=== PATIENT | female | born 1975 | race Caucasian/White ===

== ENCOUNTER 2017-06-23 19:37 | Observation (INO) ==
[2017-06-23 20:04] LABS: Bilirubin,Urine Negative (Negative); Blood,Urine Moderate (Negative); Clarity,Urine Cloudy (Clear); Color,Urine Yellow (Yellow); Glucose,Urine (UA) Normal (Normal); Ketones,Urine 15 mg/dL (Negative); Leukocyte Esterase,Urine Moderate (Negative); Nitrite,Urine Positive (Negative); PH,Urine 5.5 pH Units (5.0-8.0); Protein,Urine 30 mg/dL (Neg-Trace); Urobilinogen,Urine Normal (Normal)
--- NOTE | 2017-06-23 20:08 | Emergency Department Note ---
Disposition Clinical Impression: Abdominal pain, UTI (urinary tract infection) Disposition: Admitted As Inpatient Condition: Fair Abdominal Pain HPI - General Chief Complaint: ED Abdominal Pain Stated Complaint: ABD/LOW BACK PAIN Time Seen by Provider: 06/23/17 19:45 Source: patient Mode of arrival: ambulatory Limitations: no limitations Nursing Notes Reviewed: Yes Vital Signs Reviewed: Yes - History of Present Illness HPI Narrative: History of having severe abdominal pain lower pelvic region she has had some flank pain she has had fever chills aches all over does not feel very well she states she is nauseated but no vomiting she denies diarrhea melena hematochezia or hematemesis she states that she is having urgency frequency but denies vaginal discharge Pt Subjective Complaint: abdominal pain Onset (ago): day(s) Consistency: constant, Worsening Location: diffuse Pain Severity: severe Pain Scale: 9 Quality: cramping Radiation: none Migration to: no migration Improves with: nothing Worsens with: nothing Associated symptoms: Reports: nausea, dysuria, anorexia. Denies: vomiting, diarrhea, fever, chills, constipation, hematemesis, hematochezia, melena, hematuria, syncope Treatments prior to arrival: none - Related Data Home Medications Medication Instructions Recorded Confirmed No Known Home Drugs 06/23/17 06/23/17 Allergies Allergy/AdvReac Type Severity Reaction Status Date / Time No Known Allergies Allergy Verified 06/23/17 19:39 All systems ED: reviewed and negative except as stated. Review of Systems: As Per HPI Constitutional: Reports: fever, weakness. Denies: chills Eyes: Denies: eye pain ENT ED: Denies: ear pain Cardiovascular: Denies: chest pain, palpitations Respiratory: Denies: wheezes Gastrointestinal: Reports: abdominal pain, nausea, vomiting. Denies: constipation, hematemesis Genitourinary: Reports: urgency, dysuria, frequency Musculoskeletal: Reports: back pain. Denies: neck pain Integumentary: Denies: rash, abrasion Neurological: Denies: headache Psychiatric: Denies: anxiety Endocrine: Reports: fatigue Hematological/Lymphatic: Denies: easy bleeding Allergic/Immunologic: Denies: facial swelling Abdominal Pain PMH - Past Medical History Medical history: Reports: no medical history Female Surgical History: Reports: Psychiatric history: Reports: no psych history - Social History Smoking status: Current every day smoker Alcohol use: Reports: none Drug use: Reports: none Physical Exam - General Limitations: no limitations General appearance: alert, in no apparent distress, anxious - Head Head exam: atraumatic, normocephalic, normal inspection - Eye Eye exam: Present: normal appearance, PERRL, EOMI - ENT ENT exam: normal exam, normal oropharynx, mucous membranes moist, normal external ear exam - Neck Neck exam: Present: normal inspection, full ROM, trachea midline - Chest Chest inspection: Present: normal inspection, symmetric chest wall rise - Respiratory Respiratory exam: Present: normal lung sounds bilaterally - Cardiovascular Cardiovascular exam: Present: regular rate, normal rhythm, normal heart sounds - Abdominal Exam Abdominal exam: Present: soft, Non-Tender, normal bowel sounds. Absent: mass, pulsatile mass - Extremities Exam Extremities exam: Present: normal inspection, full ROM, normal capillary refill. Absent: tenderness, pedal edema, joint swelling, calf tenderness - Expanded Lower Extremity Exam Neurovascular/Tendon exam: Present: normal capillary refill, normal fine/light touch Gait: observed and normal - Back Exam Back exam: Present: normal inspection, full ROM, CVA tenderness (R), CVA tenderness (L). Absent: muscle spasm - Neurological Exam Neurological exam: Present: alert, oriented X3, CN II-XII intact, normal gait - Psychiatric Psychiatric exam: Present: normal affect, normal mood - Skin Skin exam: Present: warm, intact, normal color, other (Moist) Course Course Narrative: Patient seen and examined CT scan laboratory data evidences pyelonephritis we will start her on antibiotics IV with the elevated white count we will admit for observation hydrate Dr. Zurita agrees Vital Signs Temperature 100.0 F H 06/23/17 19:39 Pulse Rate 112 06/23/17 19:39 Respiratory Rate 20 06/23/17 19:39 Blood Pressure 111/75 06/23/17 19:39 O2 Sat by Pulse Oximetry 98 06/23/17 19:39 Temperature 99.0 F 06/24/17 03:37 Pulse Rate 80 06/24/17 03:37 Respiratory Rate 18 06/24/17 03:37 Blood Pressure 100/62 06/24/17 03:37 O2 Sat by Pulse Oximetry 98 06/24/17 03:37 Oxygen Delivery Oxygen Delivery Room Air Abdominal Pain - Differential Diagnosis Differential Diagnosis: Likely: abdominal pain non-specific, other (UTI pyelonephritis urinary tract infection and vaginitis inflammatory disease) - Medical Records Medical records reviewed: Yes I reviewed the patient's medical records. - Lab Data Lab results reviewed: Yes I reviewed the patient's lab results. Result diagrams: 06/23/17 20:21 06/23/17 20:21 Lab Results 06/23/17 06/23/17 06/23/17 Range/Units 19:58 19:58 20:21 WBC 21.5 H (4.3-11.1) K/mcL RBC 4.48 (3.82-4.97) M/mcL Hgb 12.2 (11.5-15.4) g/dL Hct 36.3 (35.3-44.9) % MCV 81.0 L (83.0-100.0) fL MCH 27.2 L (28.0-33.3) pg MCHC 33.6 (31.6-35.5) g/dL RDW 15.6 H (11.5-14.5) % Plt Count 302 (140-400) K/mcL MPV 8.9 L (9.4-12.4) fL Immature Gran % 0.8 (0-4) % Seg Neutrophils % 87.3 % Lymphocytes % 4.4 % Monocytes % 7.2 % Eosinophils % 0.0 % Basophils % 0.3 % Neutrophils # 18.8 H (1.6-8.9) K/mcL Lymphocytes # 1.0 (0.6-4.6) K/mcL Monocytes # 1.6 H (0.0-1.3) K/mcL Eosinophils # 0.0 (0.0-0.6) K/mcL Basophils # 0.1 (0.0-0.2) K/mcL PT (9.4-12.1) Seconds INR APTT (26.0-36.0) Seconds VBG Lactic Acid (0.5-2.2) mmol/L Sodium (136-145) mEq/L Potassium (3.5-4.5) mEq/L Chloride (98-109) mEq/L Carbon Dioxide (19-29) mEq/L BUN (7-20) mg/dL Creatinine (0.57-1.11) mg/dL Est GFR ( Amer) (> 60) Est GFR (Non-Af Amer) (> 60) BUN/Creatinine Ratio (6-26) Glucose (70-99) mg/dL Calculated Osmolality (280-300) Calcium (8.6-10.8) mg/dL Total Bilirubin (0.2-1.2) mg/dL AST (5-34) Units/L ALT (0-55) Units/L Alkaline Phosphatase (38-126) Units/L Serum Total Protein (6.0-8.3) g/dL Albumin (3.5-5.0) g/dL Globulin (2.4-3.5) g/dL Albumin/Globulin Ratio (1.1-2.2) Lipase (8-78) Units/L Urine Color Yellow (Yellow) Urine Clarity Cloudy A (Clear) Urine pH 5.5 (5.0-8.0) pH Units Ur Specific [place] 1.010 (1.010-1.025) Urine Protein 30 H (Neg-Trace) mg/dL Urine Glucose (UA) Normal (Normal) mg/dL Urine Ketones 15 H (Negative) mg/dL Urine Blood Moderate H (Negative) Urine Nitrite Positive A (Negative) Urine Bilirubin Negative (Negative) Urine Urobilinogen Normal (Normal) mg/dL Ur Leukocyte Esterase Moderate H (Negative) Urine Microscopic RBC 3-5 H (0-3) per hpf Urine Microscopic WBC TNTC H (0-3) per hpf Ur Squamous Epith Cells Few (None-Few) per lpf Urine Bacteria Many H (None-Few) per hpf Urine Mucus Many H (Few) Urine Test Negative (Negative) 06/23/17 06/23/17 06/23/17 Range/Units 20:21 20:21 20:21 WBC (4.3-11.1) K/mcL RBC (3.82-4.97) M/mcL Hgb (11.5-15.4) g/dL Hct (35.3-44.9) % MCV (83.0-100.0) fL MCH (28.0-33.3) pg MCHC (31.6-35.5) g/dL RDW (11.5-14.5) % Plt Count (140-400) K/mcL MPV (9.4-12.4) fL Immature Gran % (0-4) % Seg Neutrophils % % Lymphocytes % % Monocytes % % Eosinophils % % Basophils % % Neutrophils # (1.6-8.9) K/mcL Lymphocytes # (0.6-4.6) K/mcL Monocytes # (0.0-1.3) K/mcL Eosinophils # (0.0-0.6) K/mcL Basophils # (0.0-0.2) K/mcL PT 14.6 H (9.4-12.1) Seconds INR 1.3 APTT 32.9 (26.0-36.0) Seconds VBG Lactic Acid (0.5-2.2) mmol/L Sodium 136 (136-145) mEq/L Potassium 3.6 (3.5-4.5) mEq/L Chloride 102 (98-109) mEq/L Carbon Dioxide 19 (19-29) mEq/L BUN 8 (7-20) mg/dL Creatinine 0.84 (0.57-1.11) mg/dL Est GFR ( Amer) > 60 (> 60) Est GFR (Non-Af Amer) > 60 (> 60) BUN/Creatinine Ratio 10 (6-26) Glucose 103 H (70-99) mg/dL Calculated Osmolality 281 (280-300) Calcium 9.0 (8.6-10.8) mg/dL Total Bilirubin 0.3 (0.2-1.2) mg/dL AST 12 (5-34) Units/L ALT 9 (0-55) Units/L Alkaline Phosphatase 80 (38-126) Units/L Serum Total Protein 6.8 (6.0-8.3) g/dL Albumin 3.1 L (3.5-5.0) g/dL Globulin 3.7 H (2.4-3.5) g/dL Albumin/Globulin Ratio 0.8 L (1.1-2.2) Lipase 5 L (8-78) Units/L Urine Color (Yellow) Urine Clarity (Clear) Urine pH (5.0-8.0) pH Units Ur Specific [place] (1.010-1.025) Urine Protein (Neg-Trace) mg/dL Urine Glucose (UA) (Normal) mg/dL Urine Ketones (Negative) mg/dL Urine Blood (Negative) Urine Nitrite (Negative) Urine Bilirubin (Negative) Urine Urobilinogen (Normal) mg/dL Ur Leukocyte Esterase (Negative) Urine Microscopic RBC (0-3) per hpf Urine Microscopic WBC (0-3) per hpf Ur Squamous Epith Cells (None-Few) per lpf Urine Bacteria (None-Few) per hpf Urine Mucus (Few) Urine Test (Negative) 06/23/17 Range/Units 21:02 WBC (4.3-11.1) K/mcL RBC (3.82-4.97) M/mcL Hgb (11.5-15.4) g/dL Hct (35.3-44.9) % MCV (83.0-100.0) fL MCH (28.0-33.3) pg MCHC (31.6-35.5) g/dL RDW (11.5-14.5) % Plt Count (140-400) K/mcL MPV (9.4-12.4) fL Immature Gran % (0-4) % Seg Neutrophils % % Lymphocytes % % Monocytes % % Eosinophils % % Basophils % % Neutrophils # (1.6-8.9) K/mcL Lymphocytes # (0.6-4.6) K/mcL Monocytes # (0.0-1.3) K/mcL Eosinophils # (0.0-0.6) K/mcL Basophils # (0.0-0.2) K/mcL PT (9.4-12.1) Seconds INR APTT (26.0-36.0) Seconds VBG Lactic Acid 1.2 (0.5-2.2) mmol/L Sodium (136-145) mEq/L Potassium (3.5-4.5) mEq/L Chloride (98-109) mEq/L Carbon Dioxide (19-29) mEq/L BUN (7-20) mg/dL Creatinine (0.57-1.11) mg/dL Est GFR ( Amer) (> 60) Est GFR (Non-Af Amer) (> 60) BUN/Creatinine Ratio (6-26) Glucose (70-99) mg/dL Calculated Osmolality (280-300) Calcium (8.6-10.8) mg/dL Total Bilirubin (0.2-1.2) mg/dL AST (5-34) Units/L ALT (0-55) Units/L Alkaline Phosphatase (38-126) Units/L Serum Total Protein (6.0-8.3) g/dL Albumin (3.5-5.0) g/dL Globulin (2.4-3.5) g/dL Albumin/Globulin Ratio (1.1-2.2) Lipase (8-78) Units/L Urine Color (Yellow) Urine Clarity (Clear) Urine pH (5.0-8.0) pH Units Ur Specific [place] (1.010-1.025) Urine Protein (Neg-Trace) mg/dL Urine Glucose (UA) (Normal) mg/dL Urine Ketones (Negative) mg/dL Urine Blood (Negative) Urine Nitrite (Negative) Urine Bilirubin (Negative) Urine Urobilinogen (Normal) mg/dL Ur Leukocyte Esterase (Negative) Urine Microscopic RBC (0-3) per hpf Urine Microscopic WBC (0-3) per hpf Ur Squamous Epith Cells (None-Few) per lpf Urine Bacteria (None-Few) per hpf Urine Mucus (Few) Urine Test (Negative) - Radiology Data Radiology results reviewed: Yes I reviewed the patient's radiology results. Critical Care Time Critical Care Time: No
[2017-06-23 20:32] LABS: Basophils # 0.1 K/mcL (0.0-0.2); Basophils % 0.3 %; Hematocrit 36.3 % (35.3-44.9); Hemoglobin 12.2 g/dL (11.5-15.4); Immature Granulocytes % 0.8 % (0-4); Lymphocytes % 4.4 %; Mean Corpuscular HGB Conc 33.6 g/dL (31.6-35.5); Mean Corpuscular Hemoglobin 27.2 pg (28.0-33.3); Mean Platelet Volume 8.9 fL (9.4-12.4); Monocytes # 1.6 K/mcL (0.0-1.3); Monocytes % 7.2 %; Neutrophils # 18.8 K/mcL (1.6-8.9); Platelet Count 302 K/mcL (140-400); Red Blood Count 4.48 M/mcL (3.82-4.97); Red Cell Distribution Width 15.6 % (11.5-14.5); Segmented Neutrophils % 87.3 %
[2017-06-23 20:38] LABS: Squamous Epithelial Cell,Urine Few per lpf (None-Few); WBC,Urine TNTC per hpf (0-3)
[2017-06-23 20:39] LABS: Bacteria,Urine Many per hpf (None-Few); Mucus,Urine Many (Few)
[2017-06-23 20:52] LABS: INR 1.3; Prothrombin Time 14.6 Seconds (9.4-12.1)
[2017-06-23 20:55] LABS: Activated Partial Thrombo Time 32.9 Seconds (26.0-36.0)
[2017-06-23] MEDS ORDERED: 0.9 % Sodium Chloride 1,000 ML IVC ONE (20:55)
[2017-06-23] MEDS ORDERED: Ketorolac 30 MG/ML VIAL IVP ONE (20:58)
[2017-06-23] MEDS ORDERED: Ondansetron 4 MG/2 ML VIAL IVP ONE (20:58)
[2017-06-23 21:05] LABS: Alanine Aminotransferase 9 Units/L (0-55); Albumin 3.1 g/dL (3.5-5.0); Albumin/Globulin Ratio 0.8 (1.1-2.2); Alkaline Phosphatase 80 Units/L (38-126); Aspartate Amino Transferase 12 Units/L (5-34); BUN/Creatinine Ratio 10 (6-26); Bilirubin,Total 0.3 mg/dL (0.2-1.2); Blood Urea Nitrogen 8 mg/dL (7-20); Carbon Dioxide 19 mEq/L (19-29); Chloride 102 mEq/L (98-109); Globulin 3.7 g/dL (2.4-3.5); Glucose 103 mg/dL (70-99); Osmolality,Calculated 281 (280-300); Potassium 3.6 mEq/L (3.5-4.5); Sodium 136 mEq/L (136-145); Total Protein 6.8 g/dL (6.0-8.3); eGFR For African Americans > 60 (> 60); eGFR For Non-African Americans > 60 (> 60)
[2017-06-23] MEDS ORDERED: Naloxone 0.4 MG/ML INJ IVP PRN (23:32)
[2017-06-23] MEDS ORDERED: Ondansetron 4 MG/2 ML VIAL IVP PRN (23:32)
[2017-06-24] MEDS: 0.9 % Sodium Chloride 1,000 ML IVC SCH ×2 (00:09→08:05)
[2017-06-24] MEDS: *HR* HYDROcodone/Acet 5/325 mg TABLET PO PRN ×5 (00:19→21:21)
[2017-06-24 05:20] LABS: Basophils # 0.1 K/mcL (0.0-0.2); Basophils % 0.4 %; Eosinophils # 0.1 K/mcL (0.0-0.6); Eosinophils % 0.6 %; Hematocrit 32.7 % (35.3-44.9); Hemoglobin 10.7 g/dL (11.5-15.4); Immature Granulocytes % 0.9 % (0-4); Lymphocytes # 0.9 K/mcL (0.6-4.6); Lymphocytes % 6.6 %; Mean Corpuscular HGB Conc 32.7 g/dL (31.6-35.5); Mean Corpuscular Hemoglobin 27.2 pg (28.0-33.3); Mean Platelet Volume 8.9 fL (9.4-12.4); Monocytes # 0.6 K/mcL (0.0-1.3); Monocytes % 4.2 %; Neutrophils # 12.1 K/mcL (1.6-8.9); Platelet Count 252 K/mcL (140-400); Red Blood Count 3.94 M/mcL (3.82-4.97); Red Cell Distribution Width 15.5 % (11.5-14.5); Segmented Neutrophils % 87.3 %
[2017-06-24 05:35] LABS: BUN/Creatinine Ratio 12 (6-26); Blood Urea Nitrogen 10 mg/dL (7-20); Calcium 8.1 mg/dL (8.6-10.8); Carbon Dioxide 21 mEq/L (19-29); Chloride 108 mEq/L (98-109); Glucose 113 mg/dL (70-99); Osmolality,Calculated 290 (280-300); Potassium 3.4 mEq/L (3.5-4.5); Sodium 140 mEq/L (136-145); eGFR For African Americans > 60 (> 60); eGFR For Non-African Americans > 60 (> 60)
[2017-06-24] MEDS: Ketorolac 30 MG/ML VIAL IVP PRN ×3 (08:11→21:22)
[2017-06-24] MEDS: Acetaminophen 325 MG TABLET PO PRN (13:21)
--- NOTE | 2017-06-24 15:03 | Internal Med History&Physical ---
Date of Encounter: 06/24/17 Time of Encounter: 14:30 Assessment and Plan (1) UTI (urinary tract infection) Current visit: Yes Status: Acute She was given Rocephin in emergency room. Will continue this and add lactobacillus. Recheck labs in a.m. Qualifiers: Urinary tract infection type: site unspecified Hematuria presence: without hematuria Qualified Code(s): N39.0 - Urinary tract infection, site not specified (2) Anemia Current visit: Yes Status: Acute Hemoglobin rechecked today had decreased to 10.7. Will order anemia testing in a.m. Qualifiers: Anemia type: unspecified type Qualified Code(s): D64.9 - Anemia, unspecified (3) Hypokalemia Current visit: Yes Status: Acute We will give supplemental potassium and recheck labs in a.m. Internal Medicine - H&P: HPI Chief complaint: Abdominal and back pain Admitted From: Home Plans for Post Hospital Care: Home History of present illness: Ms. Vera is a 42 year old female who came to emergency room stating she developed onset of discomfort in her lower abdominal area on June 20. It had been constant in duration and worsening in intensity since onset. Seem to radiate gradually toward her back. She had no nausea vomiting diarrhea constipation or blood in her stools. She came to emergency room and was evaluated. She was found to have evidence of UTI and leukocytosis with left shift. She was admitted to [facility] floor for ongoing care needs. She states she had a similar previous episode of pain associated with admission to [facility] July 2016 for pyelonephritis. She denies other recent UTIs. She denies other kidney or bladder disorders. Past Med Surg Social Fam HX - Past Medical History Medical history: no medical history Psychiatric history: no psych history - Past Surgical History Surgical History: - Social History Smoking Status: Current every day smoker Smokeless Tobacco Status: No Alcohol use: none Drug use: none - Family History Mother Hx Family Cancer: Yes (Lung cancer) Internal Medicine - H&P: Meds No Known Home Drugs 06/23/17 [History] 3 Allergy/AdvReac Type Severity Reaction Status Date / Time No Known Allergies Allergy Verified 06/23/17 19:39 All Systems PM: A 10-system review of systems was performed and is negative for pertinent findings except as documented above in the HPI. Review of systems: Gen.: She states her weight has been stable the past few months Cardiovascular: She denies [place] hypertension heart failure angina DVT or pulmonary embolus Respiratory: She smokes since age 12 up to 1-1/2 packs per day. She denies chronic lung disease. GI: She denies disorders of her liver gallbladder or exocrine pancreas : She denies hematuria dysuria or kidney stones Neurologic: She has a history of migraine headaches but reports she has had none for approximately 6 months. She denies large distribution strokes or seizures Endocrine: She denies diabetes thyroid disease or hyperlipidemia Hematology/oncology: She denies blood disorders cancers or anemia Psychiatric: She denies anxiety depression or other mental health issues Musk skeletal: She denies arthritis gout or other bone joint or muscle disorders. - Constitutional Vitals: Temp Pulse Resp BP Pulse Ox 98.6 F 74 17 105/67 97 06/24/17 10:35 06/24/17 10:35 06/24/17 10:35 06/24/17 10:35 06/24/17 10:35 Exam: Gen.: She is a well-developed well-nourished female who appears in mild discomfort at present time HEENT: Head is atraumatic and normocephalic. Eyes: EOMI. There is no scleral icterus. Mouth: Mucosa is moist. Neck: Supple and nontender. There is no thyromegaly or adenopathy noted. Heart: Regular without murmurs gallops or ectopics Lungs: No wheezes or crackles are heard. Abdomen: Soft and nontender. No masses or guarding noted. Back: She has mild tenderness on percussing over her left flank area. There is no tenderness on percussing the right flank. Extremities: There is no cyanosis edema or clubbing noted. Dorsalis pedis and posterior tibial pulses are trace palpable bilaterally. Neurologic: Mental status: She is talkative and a good historian. Cranial nerves: Smile is symmetric. Forehead wrinkles bilaterally. Tongue protrudes midline. EOMI. Motor: There is no pronator drift. Cerebellar: Finger to nose is intact bilaterally. Skin: Warm and dry Internal Med - H&P Results - Labs CBC & Chem 7: 06/24/17 05:03 06/24/17 05:03 Labs: Short CBC 06/24/17 Range/Units 05:03 WBC 13.9 H (4.3-11.1) K/mcL Hgb 10.7 L D (11.5-15.4) g/dL Hct 32.7 L (35.3-44.9) % Plt Count 252 (140-400) K/mcL Neutrophils # 12.1 H (1.6-8.9) K/mcL BMP 06/24/17 05:03 Sodium 140 Potassium 3.4 L Chloride 108 Carbon Dioxide 21 BUN 10 Creatinine 0.82 Glucose 113 H Calcium 8.1 L
[2017-06-24] MEDS ORDERED: Ondansetron 4 MG/2 ML VIAL IVP PRN (15:19)
[2017-06-24] MEDS: 0.45 % Sodium Chloride w/KCl 20 MEQ/1,000 ML MLS IVC SCH (16:12)
[2017-06-24] MEDS: Nicotine 21 MG PATCH.TD24 TD SCH (16:45)
[2017-06-24 19:29] LABS: Acinetobacter baumannii by PCR Not Detected (Not Detect); Candida albicans by PCR Not Detected (Not Detect); Candida glabrata by PCR Not Detected (Not Detect); Candida krusei by PCR Not Detected (Not Detect); Candida parapsilosis by PCR Not Detected (Not Detect); Candida tropicalis by PCR Not Detected (Not Detect); Escherichia coli by PCR ***DETECTED*** (Not Detect); Klebsiella oxytoca by PCR Not Detected (Not Detect); Klebsiella pneumoniae by PCR Not Detected (Not Detect); Pseudomonas aeruginosa by PCR Not Detected (Not Detect); Serratia marcescens by PCR Not Detected (Not Detect); Streptococcus pneumoniae PCR Not Detected (Not Detect); Streptococcus pyogenes (A) PCR Not Detected (Not Detect); blaKPC Carbapenem-Resist Gene Not Detected (Not Detect)
[2017-06-24 19:30] LABS: Enterococcus by PCR Not Detected (Not Detect); Staphylococcus aureus by PCR Not Detected (Not Detect); Streptococcus agalactiae(B)PCR Not Detected (Not Detect); Streptococcus by PCR Not Detected (Not Detect)
[2017-06-24] MEDS: Lactobacillus 1 EACH CAP.SPRINK PO SCH (21:21)
[2017-06-25] MEDS: *HR* HYDROcodone/Acet 5/325 mg TABLET PO PRN ×4 (01:45→18:56)
[2017-06-25] MEDS: Ketorolac 30 MG/ML VIAL IVP PRN ×3 (04:59→18:54)
[2017-06-25] MEDS: 0.45 % Sodium Chloride w/KCl 20 MEQ/1,000 ML MLS IVC SCH (05:00)
[2017-06-25 06:39] LABS: Eosinophils # 0.2 K/mcL (0.0-0.6); Hematocrit 29.8 % (35.3-44.9); Hemoglobin 9.8 g/dL (11.5-15.4); Mean Corpuscular HGB Conc 32.9 g/dL (31.6-35.5); Mean Corpuscular Volume 82.1 fL (83.0-100.0); Mean Platelet Volume 9.3 fL (9.4-12.4); Platelet Count 185 K/mcL (140-400); Red Blood Count 3.63 M/mcL (3.82-4.97); Red Cell Distribution Width 15.7 % (11.5-14.5)
[2017-06-25 07:10] LABS: BUN/Creatinine Ratio 11 (6-26); Blood Urea Nitrogen 7 mg/dL (7-20); Carbon Dioxide 17 mEq/L (19-29); Chloride 112 mEq/L (98-109); Glucose 85 mg/dL (70-99); Magnesium 1.6 mg/dL (1.6-2.6); Osmolality,Calculated 283 (280-300); Potassium 3.5 mEq/L (3.5-4.5); Sodium 138 mEq/L (136-145); eGFR For African Americans > 60 (> 60); eGFR For Non-African Americans > 60 (> 60)
[2017-06-25 08:55] LABS: Lymphocytes # 2.7 K/mcL (0.6-4.6); Monocytes # 0.8 K/mcL (0.0-1.3); Neutrophils # 6.7 K/mcL (1.6-8.9)
[2017-06-25 08:56] LABS: Dohle Bodies Present (Not Present); Toxic Granulation Present (Not Present)
[2017-06-25 08:57] LABS: Platelet Estimate Normal (Normal)
[2017-06-25] MEDS: Lactobacillus 1 EACH CAP.SPRINK PO SCH ×2 (09:35→21:17)
[2017-06-25] MEDS: Nicotine 21 MG PATCH.TD24 TD SCH (09:35)
--- NOTE | 2017-06-25 09:44 | Internal Med Progress Note ---
Date of Encounter: 06/25/17 Time of Encounter: 09:35 - Assessment and plan (1) UTI (urinary tract infection) Current Visit: Yes Status: Acute Assessment and plan: June 25. Both blood cultures returned positive for Escherichia coli. Sensitivity is pending. Continue lactobacillus with Rocephin. Qualifiers: Urinary tract infection type: site unspecified Hematuria presence: without hematuria Qualified Code(s): N39.0 - Urinary tract infection, site not specified (2) Anemia Current Visit: Yes Status: Acute Assessment and plan: June 25. Anemia testing is pending her hemoglobin has decreased to 9.8. We will decrease IV fluids. Qualifiers: Anemia type: unspecified type Qualified Code(s): D64.9 - Anemia, unspecified (3) Hypokalemia Current Visit: Yes Status: Acute Assessment and plan: June 25. Resolved. Continue IV and oral potassium supplements. - Subjective Interval history: June 25. She has no new complaints and feels better. She has less lower abdominal pain. - Constitutional Vitals: Temp Pulse Resp BP Pulse Ox 98.4 F 73 16 122/77 97 06/25/17 06:29 06/25/17 06:29 06/25/17 06:29 06/25/17 06:29 06/25/17 06:29 Exam: She is resting comfortably in bed and appears in no acute distress. Her affect is bright and cheerful. I reviewed her medications and lab results. Internal Medicine: Result - Labs CBC & Chem 7: 06/25/17 06:05 06/25/17 06:05 Labs: Short CBC 06/25/17 Range/Units 06:05 WBC 10.5 (4.3-11.1) K/mcL Hgb 9.8 L (11.5-15.4) g/dL Hct 29.8 L (35.3-44.9) % Plt Count 185 (140-400) K/mcL Neutrophils # 6.7 (1.6-8.9) K/mcL BMP 06/25/17 06:05 Sodium 138 Potassium 3.5 Chloride 112 H Carbon Dioxide 17 L BUN 7 Creatinine 0.66 Glucose 85 Calcium 8.0 L - ABG Interpretation ABG results: PT/INR, D-dimer PT 14.6 Seconds (9.4-12.1) H 09/22/17 20:21 Consult Discharge Plan - Plan Referrals: NONE,PCP [Primary Care Provider] - 1 week
[2017-06-25] MEDS: Acetaminophen 325 MG TABLET PO PRN (12:27)
[2017-06-25 17:15] LABS: % Iron Saturation 3 % (15-50); Iron 8 mcg/dL (50-170); Transferrin 183 mg/dL (180-382)
[2017-06-25 17:35] LABS: Ferritin 114 ng/ml (5-204)
[2017-06-25 17:49] LABS: Folate 4.3 ng/mL (7.0-31.4)
[2017-06-26] MEDS: *HR* HYDROcodone/Acet 5/325 mg TABLET PO PRN ×2 (00:24→10:39)
[2017-06-26] MEDS: Ketorolac 30 MG/ML VIAL IVP PRN (05:05)
[2017-06-26 06:50] LABS: Hemoglobin 9.8 g/dL (11.5-15.4); Mean Corpuscular HGB Conc 33.8 g/dL (31.6-35.5); Mean Corpuscular Hemoglobin 27.4 pg (28.0-33.3); Platelet Count 198 K/mcL (140-400); Red Blood Count 3.58 M/mcL (3.82-4.97); Red Cell Distribution Width 15.9 % (11.5-14.5)
[2017-06-26 07:07] LABS: BUN/Creatinine Ratio 13 (6-26); Blood Urea Nitrogen 8 mg/dL (7-20); Calcium 8.3 mg/dL (8.6-10.8); Carbon Dioxide 17 mEq/L (19-29); Chloride 112 mEq/L (98-109); Glucose 84 mg/dL (70-99); Osmolality,Calculated 286 (280-300); Potassium 3.8 mEq/L (3.5-4.5); Sodium 139 mEq/L (136-145); eGFR For African Americans > 60 (> 60); eGFR For Non-African Americans > 60 (> 60)
[2017-06-26 09:07] LABS: Basophils # 0.2 K/mcL (0.0-0.2); Eosinophils # 0.5 K/mcL (0.0-0.6); Lymphocytes # 1.2 K/mcL (0.6-4.6); Monocytes # 0.5 K/mcL (0.0-1.3); Neutrophils # 5.4 K/mcL (1.6-8.9)
[2017-06-26 09:08] LABS: Platelet Estimate Normal (Normal)
[2017-06-26] MEDS: Nicotine 21 MG PATCH.TD24 TD SCH (09:18)
[2017-06-26] MEDS: Lactobacillus 1 EACH CAP.SPRINK PO SCH (09:18)
[2017-06-26 10:13] VITALS: BP 143/75
--- NOTE | 2017-06-26 10:54 | Discharge Summary ---
Date of Encounter: 06/26/17 Time of Encounter: 10:45 - Discharge Diagnosis (1) UTI (urinary tract infection) Priority: Primary Status: Acute Qualifiers: Urinary tract infection type: site unspecified Hematuria presence: without hematuria Qualified Code(s): N39.0 - Urinary tract infection, site not specified (2) Anemia Priority: Secondary Status: Acute Qualifiers: Anemia type: unspecified type Qualified Code(s): D64.9 - Anemia, unspecified (3) Hypokalemia Priority: Secondary Status: Resolved - Discharge Medications Prescriptions: Ascorbic Acid [Vitamin C] 500 mg PO DAILY #30 tablet.er Ferrous Sulfate 325 mg PO DAILY #30 tablet Folic Acid 1 mg PO DAILY #30 tablet Lactobacillus [Culturelle] 1 each PO BID #10 cap.sprink Sulfamethoxazole/Trimeth DS [Bactrim DS] 1 each PO BID #10 tablet Home Medications: Ascorbic Acid [Vitamin C] 500 mg PO DAILY #30 tablet.er 06/26/17 [Rx] Ferrous Sulfate 325 mg PO DAILY #30 tablet 06/26/17 [Rx] Folic Acid 1 mg PO DAILY #30 tablet 06/26/17 [Rx] Lactobacillus [Culturelle] 1 each PO BID #10 cap.sprink 06/26/17 [Rx] Sulfamethoxazole/Trimeth DS [Bactrim DS] 1 each PO BID #10 tablet 06/26/17 [Rx] Allergies/Adverse Reactions: 3 Allergy/AdvReac Type Severity Reaction Status Date / Time No Known Allergies Allergy Verified 06/23/17 19:39 Date of admission: 06/23/17 23:13 Primary care physician: PCP NONE - Patient Status Disposition: Home, Self-Care Condition: Fair Functional capacity at discharge: independent ambulation Overall status at discharge: patient is progressing back to baseline - Discharge Instructions Follow Up With: NONE,PCP [Primary Care Provider] - 1 week - Diet and Activity Activity: resume usual activities as tolerated Diet: advance to your usual diet Hospital course: Ms. Vera is a 42 year old female who came to emergency room stating she developed onset of discomfort in her lower abdominal area on June 20. It had been constant in duration and worsening in intensity since onset. Seem to radiate gradually toward her back. She had no nausea vomiting diarrhea constipation or blood in her stools. She came to emergency room and was evaluated. She was found to have evidence of UTI and leukocytosis with left shift. She was admitted to [facility] floor for ongoing care needs. Initial orders were written by the emergency room physician. I saw her on June 24 and performed the history and physical. She was started empirically on Rocephin for UTI. Lactobacillus was also given. Blood and urine cultures returned showing Escherichia coli with broad sensitivities. She had good clinical response with WBC returning to 7.7 on the day of discharge with 56% segs but persistent bandemia 14%. She will be discharged home on 5 additional days of antibiotic with probiotic. Hemoglobin decreased to 9.8 with administration of IV fluids. Anemia testing showed iron 8, transferrin saturation 3%, transferrin 183, ferritin 114, B12 557 , and folate 4.3. She will receive ferrous sulfate with vitamin C and folic acid prescriptions at discharge. She be discharged home and follow with a PCP within one week. - Time Spent with Patient Total time spent providing and/or coordinating discharge services: - Constitutional Vitals: Temp Pulse Resp BP Pulse Ox 98.4 F 52 17 143/75 98 06/26/17 10:12 06/26/17 10:12 06/26/17 10:12 06/26/17 10:12 06/26/17 10:12
== END 2017-06-26 11:35 | disposition home or self-care (01) ==
LOC: INPPIK 19:37 → EMEROOPIK 19:37 → INPPIK 23:22
PROVIDERS: ADMIT Internal Medicine; ATTEND Internal Medicine